=== PATIENT | female | born 1965 | race Caucasian/White ===

== ENCOUNTER → 2017-04-29 | Outpatient (CLI) | payer OTHER ==
[~2017-04-29] MED LIST: A-CILLIN500 MG PO; CIPRO500 MG PO; DIOVAN320 MG PO; FLOMAX0.4 MG PO; VICODIN 5/500 505 MG PO
== END ==
LOC: MAMMO 13:31
DX: Z12.31 Encounter for screening mammogram for malignant neoplasm of breast (principal)

== ENCOUNTER → 2018-05-04 | Outpatient (CLI) | payer OTHER | END | disposition home or self-care (01) | LOC: MAMMO 04-20 11:30 | DX: Z12.31 Encounter for screening mammogram for malignant neoplasm of breast (principal) ==

== ENCOUNTER 2021-07-08 20:55 | Emergency (ER) | payer SELFPAY | END 2021-07-08 23:01 | disposition left against medical advice (07) | LOC: ED 20:55 | DX: T14.8XXA Other injury of unspecified body region, initial encounter (principal); Z53.21 Procedure and treatment not carried out due to patient leaving prior to being seen by health care provider; Y92.89 Other specified places as the place of occurrence of the external cause ==

== ENCOUNTER 2022-08-05 16:01 | Emergency (ER) | payer SELFPAY ==
[~2022-08-05] VITALS: Ht 157.4 cm; Wt 79.8 kg
[2022-08-05] MEDS ORDERED: ULTRAM50 MG PO (17:40)
== END 2022-08-05 18:20 | disposition home or self-care (01) ==
LOC: ED 16:01
DX: M25.561 Pain in right knee (principal); M79.89 Other specified soft tissue disorders; Z88.0 Allergy status to penicillin; Z98.51 Tubal ligation status